=== PATIENT | male | born 1990 | race Caucasian/White ===

== ENCOUNTER 2017-08-19 16:14 | Emergency (ER) | payer OTHER ==
[~2017-08-19] VITALS: Ht 182.9 cm; Wt 106.3 kg
[~2017-08-19 16:14] MED LIST: Z.0.NO CURRENT MEDS
[2017-08-19 16:17] VITALS: BP 170/112; PULSE 87; RESP 16; TEMP 98.6; O2SAT 99
[2017-08-19] MEDS ORDERED: OMEP40CA2 PO (16:37)
[2017-08-19] MEDS ORDERED: ACETAMINOPHEN/HYDROcodone 325 MG/5 MG TAB PO ONE (16:45)
--- NOTE | 2017-08-19 16:53 | PD ---
HPI Chief Complaint: Foreign Body Time Seen by Provider: 16:36 Travel History International Travel<30 days: No Contact w/Intl Traveler<30days: No Traveled to known affect area: No History of Present Illness HPI 27-year-old right-hand dominant male presents to the ED for evaluation of foreign body of the right hand. Patient states that he ate a large splinter in his hand while moving some wood around 2:00 this afternoon. He sought treatment at [facility] but left before he was seen. On presentation he endorses 7/10 pain. Constant, throbbing, worsened by attempted R OM. He denies numbness or tingling of the extremity. He states that his last tetanus immunization was approximately one year ago. No treatment attempted at home. PFSH Past Medical History Diminished Hearing: No GERD: Yes Immunizations Current: No Tetanus Vaccination: Unknown Influenza Vaccination: Yes Past Surgical History Surgical History: No Previous Surgery Social History Alcohol Use: No Tobacco Use: No Substance Use: No Allergies-Medications (Allergen,Severity, Reaction): Coded Allergies: No Known Allergies (Verified Allergy, Unknown, 08/19/17) Reported Meds & Prescriptions Reported Meds & Active Scripts Active Clindamycin (Clindamycin HCl) 150 Mg Cap 450 Mg PO Q6H 7 Days Reported Omeprazole 40 Mg Cap 40 Mg PO DAILY Review of Systems Except as stated in HPI: all other systems reviewed are Neg Physical Exam Narrative GENERAL: Well-nourished, well-developed white male in no acute distress. SKIN: Focused skin assessment warm/dry. There is approximately 10 cm splinter protruding from the thenar eminence, ejected palmar to the dorsal side of the right hand. HEAD: Normocephalic. EYES: No scleral icterus. No injection or drainage. NECK: Supple, trachea midline. No JVD or lymphadenopathy. CARDIOVASCULAR: Regular rate and rhythm without murmurs, gallops, or rubs. RESPIRATORY: Breath sounds equal bilaterally. No accessory muscle use. GASTROINTESTINAL: Abdomen soft, non-tender, nondistended. MUSCULOSKELETAL: No cyanosis, or edema FOCUSED RIGHT UPPER EXTREMITY EXAM: 2+ DP pulse. Sensation intact to light touch distally. ROS testing deferred secondary to foreign body.. BACK: Nontender without obvious deformity. No CVA tenderness. Data Data Last Documented VS Vital Signs Date Time Temp Pulse Resp B/P (MAP) Pulse Ox O2 Delivery O2 Flow Rate FiO2 08/19/17 16:17 98.6 87 16 170/112 (131) 99 Orders Orders Hand, Limited (2vws) (08/19/17 16:38) Ice/Cold Pack (08/19/17 16:38) Acetamin-Hydrocod 325-5 Mg (Osborne 5-325 (08/19/17 16:45) Lidocaine 1% Inj (Xylocaine 1% Inj) (08/19/17 17:15) Hand, Limited (2vws) (08/19/17 17:39) Clindamycin (Cleocin) (08/19/17 17:45) Ed Discharge Order (08/19/17 17:46) MDM Medical Decision Making Medical Screen Exam Complete: Yes Emergency Medical Condition: Yes Differential Diagnosis Puncture wound versus foreign body versus need for tetanus immunization versus other Narrative Course 27-year-old right-hand dominant male presents to the ED for evaluation of foreign body of the right hand. Patient states that he got a large splinter in his hand while moving some wood at work around 2:00 this afternoon. He sought treatment at [facility] but left before he was seen. Tetanus immunization UTD. On exam there is an approximately 5 cm splinter penetrating through the thenar eminence of the right hand. I discussed the case with Dr. Paige Perez, on-call hand surgeon, who recommended removal attempt in the ED. Foreign body removal was performed. Please see my procedure note for details. Patient was prescribed clindamycin 450 3 times a day 7 days, first dose administered in the ED. He is instructed to keep the wound clean, dry and covered. He was provided detailed wound care instructions. He is instructed to follow-up with the hand surgeon. He indicated understanding of the instructions. He is stable and discharged home. Procedures Procedure Narrative FB REMOVAL RIGHT HAND: LOCATION: 10 cm splinter penetrating the thenar eminence of the right hand. Measures approximately 0.4 cm at the widest point. REMOVAL: The area of the foreign body was prepped with Betadine and sterilely draped. The laceration was infiltrated with 1% lidocaine 6 cc. Traction was applied to the foreign body in a palmar direction. The entire splinter was removed without difficulty. The wound was copiously irrigated and explored without evidence of foreign body, tendon injury or neurovascular injury. Patient was able to demonstrate strong finger to thumb opposition with each digit full flexion and extension of the hand. The wounds were left open. Sterile dressing was applied. Was provided detailed wound care instructions. He tolerated the procedure well. Diagnosis Primary Impression: Acute foreign body of right hand Qualified Codes: S60.551A - Superficial foreign body of right hand, initial encounter Referrals: Paige Perez MD Patient Instructions: General Instructions, Puncture Wound (ED) Additional Instructions: Rest, ice, elevate the extremity. Apply ice no longer than 10-15 minutes per hour a few times a day. 800 mg ibuprofen up to 3 times a day as needed for pain. Take every antibiotic pill until they are all gone. Keep the wound clean, dry and covered. Return to normal, gentle activity as tolerated. Monitor for signs of infection, return should these occur. Follow-up with Dr. Perez as discussed. Return to the ED for any urgent or emergent medical condition. Med/Other Pt SpecificInfo: Prescription(s) given Scripts Clindamycin (Clindamycin) 150 Mg Cap 450 MG PO Q6H for Infection for 7 Days, #84 CAP 0 Refills Prov: Abe Paez MD 08/19/17 Disposition: 01 DISCHARGE HOME Condition: Stable Ashley Zurita Aug 19, 2017 16:53
[2017-08-19] MEDS ORDERED: LIDOCAINE HCL 1% 50 ML VIAL INFIL ONE (17:00)
--- NOTE | 2017-08-19 17:03 | RADRPT ---
EXAM DATE/TIME: 08/19/2017 16:52 [facility] COMPARISON: No previous studies available for comparison. INDICATIONS : Evaluate for foreign body. Large wood splinter through right hand. MEDICAL HISTORY : None. SURGICAL HISTORY : None. ENCOUNTER: Initial ACUITY: 1 day PAIN SCORE: 8/10 LOCATION: Right upper extremity FINDINGS: Large partially radiolucent wooden splinter seen coursing to the hand. Ultrasound can be used to be sure although it is removed since majority of it is radiolucent. CONCLUSION: Partially radiolucent wooden foreign body as described above Calin Zendejas MD FACR on August 19, 2017 at 16:59 Board Certified Radiologist. This report was verified electronically.
[2017-08-19] MEDS ORDERED: LIDOCAINE HCL 1% 20 ML VIAL INFIL ONE (17:15)
[2017-08-19] MEDS ORDERED: CLINDAMYCIN 150 MG CAP PO ONE (17:45)
[2017-08-19] MEDS ORDERED: CLIN150C14 PO (17:46)
--- NOTE | 2017-08-19 18:16 | RADRPT ---
EXAM DATE/TIME: 08/19/2017 17:50 [facility] COMPARISON: No previous studies available for comparison. INDICATIONS : Post precedure. Removal of wood splinter from right hand. MEDICAL HISTORY : None. SURGICAL HISTORY : None. ENCOUNTER: Subsequent ACUITY: 1 day PAIN SCORE: 2/10 LOCATION: Right upper extremity FINDINGS: No residual radiopaque density is seen in the right hand. No acute bony abnormalities. CONCLUSION: 1. No residual radiopaque density identified. Nadir Timmons MD on August 19, 2017 at 18:13 Board Certified Radiologist. This report was verified electronically.
== END 2017-08-19 18:28 | disposition home or self-care (01) ==
LOC: PHEFT 16:14
DX: S60.551A Superficial foreign body of right hand, initial encounter (principal); K21.9 Gastro-esophageal reflux disease without esophagitis; X58.XXXA Exposure to other specified factors, initial encounter; Z79.899 Other long term (current) drug therapy
CPT/HCPCS: 10120; 73120